=== PATIENT | female | born 1985 | race Caucasian/White ===

== ENCOUNTER 2019-08-12 16:52 | Outpatient (CLI) | payer OTHER, SELFPAY ==
[2019-08-12 17:06] LABS: Basophils Percent Auto 0.4 % (0.2-1.2); Eosinophils Absolute Auto 0.2 K/mm3 (0-0.3); Eosinophils Percent Auto 2.3 % (0-4.4); Hematocrit 32.5 % (37.0-47.0); Hemoglobin 10.5 g/dL (12.0-15.0); Immature Granulocyte Absolute 0.05 K/mm3 (0.00-0.031); Immature Granulocyte Percent A 0.6 % (0-0.5); Lymphocytes Percent Auto 40.1 % (18.3-44.2); Mean Corpuscular HGB Conc 32.3 g/dl (32-36); Mean Corpuscular Hemoglobin 29.2 pg (26-34); Mean Corpuscular Volume 90.3 fl (80-100); Mean Platelet Volume 10.8 fl (7.4-10.4); Monocytes Absolute Auto 1.1 K/mm3 (0.1-0.6); Monocytes Percent Auto 13.7 % (2.6-8.5); Neutrophils Absolute Auto 3.5 K/mm3 (1.3-6.7); Neutrophils Percent Auto 42.9 % (45.5-73.1); Platelet Count Result 132 k/mm3 (150-375); Red Cell Distribution Width 13.9 % (11.5-14.5); White Blood Count 8.2 K/mm3 (4.5-10.0)
[2019-08-12 17:57] LABS: HIV 1/2 Ab P24 Ag Result Negative (Negative)
[2019-08-13 07:21] LABS: Rapid Plasma Reagin Non-Reactive (NonReactive)
== END 2019-08-12 16:53 | disposition home or self-care (01) ==
LOC: ANHLAB 16:54
PROVIDERS: Visit Provider Student in an Organized Health Care Education/Training Program
DX: Z34.83 Encounter for supervision of other normal pregnancy, third trimester (principal); Z3A.00 Weeks of gestation of pregnancy not specified
CPT/HCPCS: 36415; 85025; 86592; 86703; G0432

== ENCOUNTER 2019-08-22 15:11 | Inpatient (IN) | payer OTHER, SELFPAY ==
[2019-08-22] VITALS (68 sets, daily range): BP systolic 86–156; BP diastolic 49–90; PULSE 59–104; TEMP 36.6–37.1; O2SAT 93–99; BMI 30.4
[2019-08-22] MEDS: LACTATED RINGERS 1,000 ML 125 ML IV CONT ×2 (18:07→18:40)
--- NOTE | 2019-08-22 18:07 | WPDANESEPP ---
Anes - Eval Pre Procedure Procedure: Labor epidural Date/Time: 08/22/19 18:07 Surgeon: tommie Preop Diagnosis: Abdominal pain with contractions Pre Op Diagnosis: contractions Patient Data Age: 34 Gender: F Height: Weight: Last Vital Signs Pulse 83 08/22/19 16:01 BP 103/64 08/22/19 16:01 Allergies Allergy/AdvReac Type Severity Reaction Status Date / Time bacitracin Allergy Unknown Unknown Verified 08/20/19 15:16 Home Medications Medication Instructions Recorded Confirmed Type vits 75-iron 28 mg-folic pkg PO 05/08/19 History acid 800 mcg-omega-3 oral combo pack iron carb,gluc 90 mg-folic acid 1 1 tablet PO ONCE #90 tablet 07/10/19 07/10/19 Rx mg-B12 12 [id number] 50mg tablet Patient hx anesthesia problems: none Family hx anesthesia problems: none PMFSH Past Medical History Medical History Encounter for supervision of normal in multigravida in second trimester HPV (human papilloma virus) infection Surgical History Surgical History H/O breast biopsy H/O LEEP Family History Family History Mother Lupus Social History Social History Smoking status: Never smoker Second hand tobacco smoke exposure: No Alcohol intake: current Exam Day of Procedure 08/22/19 18:07
[2019-08-22] MEDS: AMPICILLIN 2 GM/NS 100 ML 2 GM/100 ML BAG IVPB (18:08)
[2019-08-22 18:16] LABS: Basophils Percent Auto 0.3 % (0.2-1.2); Eosinophils Absolute Auto 0.2 K/mm3 (0-0.3); Eosinophils Percent Auto 1.1 % (0-4.4); Hematocrit 33.1 % (37.0-47.0); Hemoglobin 11.1 g/dL (12.0-15.0); Immature Granulocyte Absolute 0.07 K/mm3 (0.00-0.031); Immature Granulocyte Percent A 0.5 % (0-0.5); Lymphocytes Absolute Auto 3.75 K/mm3 (0.9-3.2); Lymphocytes Percent Auto 26.8 % (18.3-44.2); Mean Corpuscular HGB Conc 33.5 g/dl (32-36); Mean Corpuscular Hemoglobin 29.8 pg (26-34); Mean Corpuscular Volume 88.7 fl (80-100); Mean Platelet Volume 10.9 fl (7.4-10.4); Monocytes Absolute Auto 1.3 K/mm3 (0.1-0.6); Neutrophils Absolute Auto 8.7 K/mm3 (1.3-6.7); Neutrophils Percent Auto 62.3 % (45.5-73.1); Platelet Count Result 137 k/mm3 (150-375); Red Blood Count 3.73 M/mm3 (4.2-5.4); Red Cell Distribution Width 14.1 % (11.5-14.5)
--- NOTE | 2019-08-22 18:18 | PM.IMHP ---
H&P: HPI History of Present Illness Chief complaint: contractions Narrative: Meghan Almanza is a 34 year old female LMP 11/26/18 FLACO 09/02/19 currently 38w3d gestation dated by LMP consistent with US on 02/02/19 at 9w gestation who presented to L&D with complaint of contractions with minimal vaginal spotting. Reports onset of contractions this AM at approx. 2:00 a.m. States that contractions spaced out throughout the day and then started to increase in frequency, prompting visit to L&D. She is otherwise feeling well. Denies any leakage of fluid and reports good movement. Per RN, initial cervical exam was 1cm dilated. Patient was observed for a few hours during which time she made cervical change to 3 cm dilated and is now 80% effaced. Decision made to admit patient in labor. Review of Systems Review of Systems: All systems reviewed & are unremarkable except as noted in HPI and below Constitutional: Constitutional: Reports as per HPI, Reports no additional constitutional complaints, Denies chills, Denies fever(s), Denies headache(s) and Denies night sweats Eyes: Eyes: Reports as per HPI and Reports no additional eye complaints ENT: Reports system reviewed and no additional complaints, except as documented, Reports as per HPI, Reports Normal hearing present and Denies headache(s) Cardiovascular: Cardiovascular: Reports as per HPI, Reports no additional cardiovascular complaints, Denies chest pain and Denies dyspnea Respiratory: Respiratory: Reports as per HPI, Reports no additional respiratory complaints, Denies cough and Denies dyspnea Gastrointestinal: Gastrointestinal: Reports as per HPI, Reports no additional gastrointestinal complaints, Denies abdominal pain, Denies change in bowel habits, Denies change in stool character, Denies nausea and Denies vomiting Genitourinary: Genitourinary: Reports no additional female genitourinary complaints, Reports as per HPI, Denies abnormal vaginal bleeding, Denies genital lesions, Denies hot flashes, Denies dyspareunia, Denies pelvic pain, Denies sexual dysfunction, Denies urinary incontinence, Denies vaginal discharge, Denies vaginal dryness and Denies vaginal odor Comments: spotting Musculoskeletal: Musculoskeletal: Reports no additional musculoskeletal complaints and Reports as per HPI Integumentary/Breasts: Skin/Breast: Reports system reviewed and no additional complaints, except as docu, Reports as per HPI, Denies breast pain and Denies nipple discharge Neurologic: Reports system reviewed and no additional complaints, except as documented, Reports as per HPI, Reports Normal hearing present and Denies headache(s) Psychiatric: Psychiatric: Reports no additional psychiatric complaints, Reports as per HPI, Denies anxiety and Denies depression Endocrine: Endocrine: Reports no additional endocrine complaints and Reports as per HPI Hematologic/Lymphatic: Hematologic/Lymphatic: Reports no additional hematologic/lymphatic complaints and Reports as per HPI Allergic/Immunologic: Allergic/Immunologic: Reports no additional allergic/immunologic complaints and Reports as per HPI PMFSH Surgical History Surgical History H/O breast biopsy H/O LEEP Family History Family History Mother Lupus Social History Social History Smoking status: Never smoker Second hand tobacco smoke exposure: No Alcohol intake: current Substance use: never Gender identity (if verbalized by the patient): Female Spiritual care concerns: No Meds Home Medications and Allergies Home Medications Medication Instructions Recorded Confirmed Type vits 75-iron 28 mg-folic 1 pkg PO DAILY 05/08/19 08/22/19 History acid 800 mcg-omega-3 oral combo pack iron carb,gluc 90 mg-folic acid 1 1 tablet PO ONCE #90 tablet 07/10/19 08/22/19 Rx mg-
--- NOTE | 2019-08-22 18:19 | LDADM ---
This patient, Meghan Almanza, was admitted to Labor/Delivery/Recovery 106 on 08/22/19 at 15:12. Plans for labor, pain management and were discussed with patient. Patient/family oriented to hospital policies and general routines including ID bracelet, bed and alarms, visiting hours, pain management, procedures, bathroom and other care routines, personal items, smoking policy, room service/diet and guest tray routines, infant security routines, and visiting hours. Patient/Family are encouraged to report perceived risks to care and to ask questions if they do not understand what they are told or what they should do. See OBIX for further documentation.
[2019-08-22] MEDS: ONDANSETRON INJ 4 MG/2 ML VIAL IV PUSH (20:54)
[2019-08-22] MEDS: FAMOTIDINE 20 MG/2 ML VIAL IV PUSH (22:20)
[2019-08-22] MEDS: AMPICILLIN 1 GM/NS 50 ML 1 GM/50 ML BAG IVPB (22:25)
--- NOTE | 2019-08-22 23:40 | PM.OBPRVD ---
OB - Delivery Note Procedure Delivery date: 08/22/19 Procedure: The patient is a 34-year-old G2, now P2002 who presented to Labor and Delivery on 08/22/2019 at 38 weeks and 3 days gestation with complaints of contractions and vaginal spotting. Patient was observed on Labor and Delivery for approximately 2 hours during which time she made cervical change from approximately 1 cm dilated to 3 cm dilated. Decision made to admit patient in labor. Patient continued to make steady progress on her own without intervention. Patient became uncomfortable and requested an epidural for pain management. Patient had a history of GBS bacteriuria during early for which she was treated. She was started on ampicillin for GBS prophylaxis. At 10:11 p.m., artificial rupture membranes was performed. Clear amniotic fluid was noted. The patient progressed on her own and was found to be fully dilated at 10:55 p.m. Patient was prepped and draped for delivery. She was encouraged to push and found to be pushing well. At 11:14 p.m., head delivered atraumatically and without difficulty in MOE presentation. Occiput restituted to maternal left side. With subsequent push, the infant's neck, shoulders, and rest of body delivered without difficulty. The 's nose and mouth were suctioned with bulb suction. Delayed cord clamping was performed for approximately 60 seconds. was crying spontaneously. The cord was clamped and cut and was placed on maternal abdomen where care was assumed by waiting nursing staff. A segment of cord was collected for cord gases. Cord blood was also collected. The placenta was delivered spontaneously and intact. A moderate amount of bleeding was noted. Uterus was noted to be mildly boggy and became firm with bimanual massage. Bleeding subsided. On inspection, no lacerations were noted and perineum was intact. The patient was cleansed and dried. The infant was a live-born male , Apgars 9 and 9, weighing 6 lb and 6 oz. Both mother and baby doing well at end of delivery. events: Labor < 37 Weeks Intrapartal events: None Delivery augmentation: rupture of membranes Delivery monitor: external FHT Route of delivery: Episiotomy description: None Laceration description: None Specimen: Yes (cord blood and cord gases) Estimated blood loss (mL): 250 Anesthesia type: Epidural Disposition: floor Complications: No immediate complications [place] Baby Date of : 08/22/19 Time of : 23:14 Weeks of gestation at delivery: 38 (38w3d) Infant gender: Male Weight (pounds): 6 Weight (ounces): 6 presentation: vertex position: Left Occiput Anterior Placenta delivery description: Spontaneous cord vessel description: 3 Vessels score one minute: 9 score five minutes: 9
[2019-08-23] VITALS (9 sets, daily range): BP systolic 88–114; BP diastolic 54–80; PULSE 57–83; RESP 14–16; TEMP 36.7–36.9; O2SAT 100
[2019-08-23] MEDS: LORATADINE 10 MG TABLET PO (00:11)
[2019-08-23] MEDS: IBUPROFEN 600 MG TABLET PO ×4 (01:03→20:37)
--- NOTE | 2019-08-23 03:00 | PC.NURSE ---
Daylight Savings Time For Daylight Savings Time Beginning in the Spring - Clocks are moved ahead. For [facility], the time of change occurs at 0200 hrs. Time is taken from the electrical prospecting observer. This entry on the patient's chart recognizes the change in time reflected during documentation. Example: 2 entries for vital signs may be charted for 0200 hrs.
[2019-08-23] MEDS: DOCUSATE SODIUM 100 MG CAPSULE PO ×2 (08:40→16:58)
[2019-08-23] MEDS: MULTIVIT/MIN/PREN/FOL AC/IRON TABLET 1 TAB PO (08:40)
--- NOTE | 2019-08-23 09:49 | P.PNOB_ITS ---
OB - PN: Subj Subjective Date/time seen: 08/23/19 09:49 Doing well this AM. Patient reports feeling tired. She does report moderate cramping and mild lower back pain. Reasonably controlled with medication. Denies heavy vaginal bleeding. Denies any headache, chest pain, SOB, N/V. Tolerating PO diet. Ambulating and voiding without difficulty. OB - PN: Obj Data Labs CBC & Chem 7: 08/22/19 18:12 Labs: Laboratory Results - last 24 hr 08/22/19 08/22/19 18:12 18:12 WBC 14.0 H RBC 3.73 L Hgb 11.1 L Hct 33.1 L MCV 88.7 MCH 29.8 MCHC 33.5 RDW 14.1 Plt Count 137 L MPV 10.9 H Immature Gran % (Auto) 0.5 Neut % (Auto) 62.3 Lymph % (Auto) 26.8 [place] % (Auto) 9.0 H Eos % (Auto) 1.1 Baso % (Auto) 0.3 Lymph # (Auto) 3.75 H [place] # (Auto) 1.3 H Eos # (Auto) 0.2 Baso # (Auto) 0.0 Abs Immat Gran (auto) 0.07 H Absolute Neuts (auto) 8.7 H Absolute Nucleated RBC 0.0 Nucleated RBC % 0.0 Blood Type O Positive Antibody Screen Negative OB - PN A/P Assessment and Plan (1) Normal spontaneous vaginal delivery: Code(s): O80 - Encounter for full-term uncomplicated delivery Status: Acute Assessment and Plan: PPD#1 doing well pain management PRN encourage ambulation continue routine care Time Spent With Patient Time: Total time spent is greater than 50% in coordination of care (as documented) at patient's floor/unit and/or counseling patient: Exam Const: General: comfortable and no acute distress GI: GI Palp: Yes Soft to palpation and No Tenderness to palpation present (GI) Other: fundus just below umbilicus Extrem: Right lower extremity: edema (trace edema to ankle) Left lower extremity: edema (trace edema to ankle) Other: no calf tenderness
[2019-08-23] MEDS: ACETAMINOPHEN 325 MG TABLET 650 MG PO (09:51)
[2019-08-23] MEDS: POLYSACCHARIDE IRON COMPLEX 150 MG CAPSULE PO (16:58)
[2019-08-24 05:33] LABS: Hematocrit 30.9 % (37.0-47.0); Hemoglobin 10.2 g/dL (12.0-15.0)
[2019-08-24 07:50] VITALS: BP 100/61; PULSE 68; RESP 16; TEMP 36.9; O2SAT 98
[2019-08-24] MEDS: IBUPROFEN 600 MG TABLET PO (08:08)
[2019-08-24] MEDS: MULTIVIT/MIN/PREN/FOL AC/IRON TABLET 1 TAB PO (08:08)
[2019-08-24] MEDS: DOCUSATE SODIUM 100 MG CAPSULE PO (08:08)
--- NOTE | 2019-08-24 08:29 | P.PNOB_ITS ---
OB - PN: Subj Subjective Date/time seen: 08/24/19 08:29 Patient doing well this morning. Denies any lower abdominal pain or cramping. Minimal to moderate lochia. Denies any headache, chest pain, shortness of br eath, nausea or vomiting. Tolerating p.o. diet. Voiding and ambulating well. OB - PN: Obj Data Labs CBC & Chem 7: 08/24/19 05:11 Labs: Laboratory Results - last 24 hr 08/24/19 05:11 Hgb 10.2 L Hct 30.9 L OB - PN A/P Assessment and Plan (1) Normal spontaneous vaginal delivery: Code(s): O80 - Encounter for full-term uncomplicated delivery Status: Acute Assessment and Plan: PPD#2 doing well continue routine care likely discharge this evening, however, infant delivered shortly before midnight Time Spent With Patient Time: Total time spent is greater than 50% in coordination of care (as documented) at patient's floor/unit and/or counseling patient: Exam Const: General: comfortable and no acute distress GI: GI Palp: Yes Soft to palpation, No Tenderness to palpation present (GI) and No Guarding due to palpation present (GI) Other: fundus below umbilicus Extrem: Right upper extremity: no edema Left upper extremity: no edema Other: no calf tenderness
[2019-08-24 09:23] LABS: Rapid Plasma Reagin Non-Reactive (NonReactive)
--- NOTE | 2019-08-24 09:50 | PC.NURSE ---
Consulted with patient, mother reports tenderness with latching. Mother a reports she breastfed first child without issue. Reviewed feeding cues, frequencies, duration of feedings, feeding elimination flow sheet, and signs of adequate intake. Demonstrated stimulation techniques to wake for feeding. Assisted with to breast. Mother puts to breast using cradle with shallow latch. Reviewed positioning/alignment in cross cradle, holding breast in U hold and guided asymmetrical latch on. Infant was able to latch correctly with first attempt. Mother quickly reports she can feel is latched more deeply and has no discomfort. Infant nursed eagerly, with steady draws and frequent swallowing noted. Reviewed signs of a correct latch, effective nursing and suck swallow ratio. was able to maintain latch without discomfort to mother. Nipple care reviewed. Mother is feeding as required and waking infant to feed if needed. Infant has had 8 effective feedings in the past 24 hours, and is currently meeting outcomes for weight, output, jaundice and feeding frequencies. Mother states she feels confident to continue effective at home. Reviewed transition to breast milk, signs of adequate intake, and engorgement/relief. Instructed to call ICP if intake/output less than required. Reviewed regular medications mother is taking. Information provided per [facility]. Reviewed community resources on the [facility] website and in the Mom/Baby guide. Information on outpatient services provided. Mother has no further questions at this time.
--- NOTE | 2019-08-24 12:15 | PM.OBDSVD ---
DS: Diagnosis Admitting Diagnosis Admitting Diagnosis: Active labor at term GBS Bacteriuria Discharge Diagnosis (1) Normal spontaneous vaginal delivery: Code(s): O80 - Encounter for full-term uncomplicated delivery Status: Acute OB - DS: Summary OB Procedures : None OB Procedures Intrapartum: Spontaneous Vag Delivery OB Procedures: : None Time Spent with Patient Time attestation: Total time spent providing and/or coordinating discharge services: DS: Data Data Completed and Pending Labs on day of discharge: Labs from last 24 hours 08/24/19 08/22/19 05:11 18:12 Hgb 10.2 L Hct 30.9 L RPR Non-reactive Discharge Plan Discharge Attending physician on discharge: Tanja Landeros Discharging Clinician: Tanja Landeros Anticipated Discharge Date/Time: 08/24/19 12:17 Patient Disposition: Home, Self-Care Activity: as tolerated and pelvic rest Diet: regular Discharge Instructions: Call office ([phone]) to schedule a visit in 4-6 weeks. You may take Ibuprofen 600mg every 6 hours as needed for pain. Pain medication may make you constipated. It may be helpful to take an [id number] stool softener, such as Colace and/or Senokot, along with the pain medication to help lessen constipation. Call office or go to ED for pain not controlled with medication, headache, chest pain, shortness of breath, fever, chills, persistent nausea or vomiting, severe abdominal pain, heavy vaginal bleeding >2 pads/hour, foul vaginal discharge or odor, or problems with your breasts. Patient Instructions: Antibiotic Form Stand Alone Forms: General Discharge Information Follow-up/Referrals: Tanja Landeros MD [Physician] - Discharge Medications: No Action One A Day Women's DHA 28 mg iron- 800 mcg combo pack 1 pkg PO DAILY RF: 0 Ferralet 90 Dual-Iron Delivery 90-1-12-50 on-ee-kzq-mg tablet 1 tablet PO ONCE Qty: 90 RF: 0 Date of admission: 08/22/19 15:12 Primary Care Provider: PHYSICIAN,RETAIL MANAGER IN TRAINING Admitting Provider: Tanja Landeros Attending physician on admission: Tanja Landeros Condition: Stable
--- NOTE | 2019-08-24 12:30 | PC.NURSE ---
Patient instructed on viewing the discharge video Mother & Baby Care, The First Two Weeks online. Patient was given the opportunity and encouraged to ask questions. Patient verbalized understanding of information shared and has been given the mother/baby guide for home reference.
[2019-08-25 11:02] VITALS: BP 111/66; PULSE 83; RESP 16; TEMP 36.9
== END 2019-08-24 15:02 | disposition home or self-care (01) | DRG 807 ==
LOC: ANHLDR 18:11 → ANHOB2 08-23 01:40
PROVIDERS: Admitting Provider Student in an Organized Health Care Education/Training Program; Visit Provider Student in an Organized Health Care Education/Training Program
DX: O99.824 Streptococcus B carrier state complicating childbirth (principal); Z37.0 Single live birth; O76 Abnormality in fetal heart rate and rhythm complicating labor and delivery; Z3A.38 38 weeks gestation of pregnancy
CPT/HCPCS: 36415; 85014; 85018; 85025; 86592; 86850; 86900; 86901; A9270; J0290; J2405; J2590; J2795; J7120

== ENCOUNTER 2020-03-14 16:33 | Outpatient (CLI) | payer OTHER, SELFPAY ==
[2020-03-14 18:48] LABS: Beta HCG Quantitative < 2.39 mIU/ML
== END 2020-03-14 16:34 | disposition home or self-care (01) ==
LOC: ANHLAB 16:35
PROVIDERS: Visit Provider Student in an Organized Health Care Education/Training Program
DX: Z30.430 Encounter for insertion of intrauterine contraceptive device (principal)
CPT/HCPCS: 36415; 84702

== ENCOUNTER 2022-03-02 10:32 | Emergency (ER) | payer OTHER, SELFPAY ==
[2022-03-02 10:45] VITALS: BP 110/67; PULSE 58; RESP 18; TEMP 36.3; O2SAT 100
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
== END 2022-03-02 11:26 | disposition home or self-care (01) ==
PROVIDERS: Emergency Provider Nurse Practitioner; PCP Family Medicine Sports Medicine
DX: J06.9 Acute upper respiratory infection, unspecified (principal)
CPT/HCPCS: 99213; G0463

== ENCOUNTER 2024-05-13 13:11 | Outpatient (CLI) | payer OTHER, SELFPAY ==
--- NOTE | ~2024-05-13 | MMUS_ITS ---
EXAMINATION: MM diagnostic wojciech BI w nathalia, US breast LT limited HISTORY: Palpable left breast lump TECHNIQUE: Additional 3-D tomosynthesis images of the breasts were performed and synthetic 2-D images were generated. CAD analysis was submitted and interpreted. High resolution Limited left breast ultr asound was performed. COMPARISON: None BREAST PARENCHYMAL COMPOSITION: Dense: The breasts are extremely dense, which lowers the sensitivity of mammography. FINDINGS: MAMMOGRAPHIC FINDINGS: There are no suspicious masses, calcifications or architectural distortion in either breast to sugges t malignancy. There is a fat-containing mass corresponding to the area of palpable concern in the upp er outer quadrant of the left breast, consistent with benign lipoma. ULTRASOUND: Limited left breast ultrasound: At 2:00, 5 cm from the nipple in the area palpable concern there is a n encapsulated hypoechoic parallel oriented mass with horizontal internal striations measuring 2.3 x 1.9 x 1 cm. No internal vascularity or posterior features. The sonographic characteristics are compat ible with lipoma. IMPRESSION: 1. No evidence for malignancy in either breast. Benign finding in the left breast, compatible with be nign lipoma. 2. Routine yearly screening mammogram and regular clinical breast examination are recommended. BI-RADS Category 2: Benign finding(s). Reviewed, dictated and finalized at location B. OLOGICAL EQUIPMENT SPECIALIST IMPRESSION: 1. No evidence for malignancy in either breast. Benign finding in the left ev st, compatible with benign lipoma. 2. Routine yearly screening mammogram and regular clinical breast examination a re recommended. BI-RADS Category 2: Benign finding(s).
== END 2024-05-13 13:12 | disposition home or self-care (01) ==
LOC: ANHIMG 13:12
PROVIDERS: PCP Family Medicine; Visit Provider Nurse Practitioner Family
DX: N63.25 Unspecified lump in the left breast, overlapping quadrants (principal)
CPT/HCPCS: 76642; 77062; 77066; G0279